=== PATIENT | male | born 1965 | race Caucasian/White ===

== ENCOUNTER → 2016-04-15 | Outpatient (CLI) | payer OTHER ==
[~2016-04-15] VITALS: Ht 175.3 cm; Wt 86.2 kg
[~2016-04-15] MED LIST: CARVEDILOL3.125 MG PO; CLONIDINE HCL0.1 MG PO; CLONIDINE0.1 PO; COREG3.125 MG PO; DOLOPHINE HCL10 MG PO; DOXYCYCLINE 10100 M1 PO; ENDOCET 10-3251 EACH PO; FLUOXETINE HCL40 MG PO; HYDROCODON-ACE1 EAC5 PO; HYDROCODONE-AP1 EACH PO; HYDROXYZINE HCL25 M1 PO; IBUPROFEN 200200 M1 PO; METHADONE HCL 110 M1 PO; MS CONTIN 30 MG30 M1 GT; NAPROSYN500 MG PO; NEURONTIN 300300 M1 PO; NEXIUM40 MG PO; NORCO 10-325 T1 EACH PO; NORTRIPTYLINE H25 M3 PO; NORVASC5 MG PO; OXYCONTIN20 MG PO; PRAVACHOL20 MG PO; PREDNISONE50 MG PO; PROZAC 10 MG CA10 M1 PO; PROZAC 10 MG CA10 MG PO; PROZAC10 MG PO; SUBOXONE 8 MG-1 EAC3 SL; TIZANIDINE HCL 22 MG PO; TIZANIDINE HCL4 MG PO; VALACYCLOVIR1000 MG PO; VIAGRA50 MG; VIAGRA50 MG PO; VICODIN; ZANAFLEX2 M2 PO; ZANAFLEX4 M1 PO; ZANAFLEX4 MG PO
--- NOTE | ~2016-04-15 | HPC ---
[facility] [place] [address] PAIN MANAGEMENT CONSULTATION Name: YAN OAKES Room #: REG RAMSEY Sandi.#: [id number] Admission: 04/15/16 Attend Phys: Francis Marsh MD Discharge: Date of : 61 Report #: [id number] THIS REPORT FOR: //name// CC: JAIRO Marsh DATE OF SERVICE: 04/15/2016 DATE OF REGISTRATION: 04/15/2015 Followup visit for management of high risk medications for chronic back pain post-laminectomy. The patient is in clinic for followup. I saw him 2 months ago. I had been keeping close under the terms of our opioid agreement. We have been tapering his methadone. We are going to taper it further over the course of the next 3 months. Current daily dose of methadone is 40, taken 10 mg q.i.d. Next month we will reduce the dose to 35 mg daily and then 30 a month after that. He is agreeable to this. He has been continuing to see Gema Metcalf, a clinical pain psychologist who is helping with the issues of stress related to ongoing life issues. Still in the custody parekh with his daughter about her child. We discussed it for some time today. His pain intensity is 5/10 today. Lot of that is because his stress seems to be low. Pain is generally worse in his low back radiating into his left buttock and left leg, although he continues to have cervicalgia as well. Pain is exacerbated by prolonged sitting. 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 Medication helps him do so. Denies any significant side effects and is pleased to be coming down on his medication. We spent a lot of time today talking about his tobacco use. He at one time used a of chewing tobacco a day. It is now down to 2-1/2 per week. May be too little too late for his mouth. He has lost many teeth and has significant dental caries and other problems. Recently dealt with an abscess in one of his premolar areas. We discussed the role that poor oral health has and general body inflammation and can certainly worsen generalized aches and pains including his back, neck [facility] [address] [place] [address] PAIN MANAGEMENT CONSULTATION Name: YAN OAKES Room #: REG RAMSEY Junior.#: [id number] Admission: 04/15/16 Attend Phys: Francis Marsh MD Discharge: Date of : 61 Report #: [id number] pain. Just more impetuous for him to completely discontinue his use of oral tobacco. We talked about strategies to do so today. He has followed some of my recommendations regarding nutritional weight loss. At one time, he was up to 230 pounds. He is down to 190. He appears more fit. His color is better. I encouraged him to keep the weight down and watch what he eats. Probably he was having problems gaining weight because his teeth are so poor he cannot chew. On physical exam, he is pleasant today. Less anxious and I had seen him in the past. He is little frustrated about the issue with his granddaughter. His blood pressure is 123/91, heart rate is 93, respirations 12. BMI is 28, moves from sitting to standing position, ambulates without difficulty. Tenderness across his low back is noted. Straight leg raising into the left buttock and down the left leg is present. IMPRESSION: 1. Chronic intractable back pain with radiculopathy status post lumbar laminectomy. 2. Management of high risk medication. 3. History of chronic anxiety and depression. 4. Hypertension. 5. Continued abuse of oral snuff, chewing tobacco. PLAN: 1. I renewed his medications with tapering dose of methadone as described above. He will continue to use hydrocodone 3 times daily for breakthrough pain under terms of our opioid agreement. 2. Follow up with Gema Metcalf. 3. Follow up with dental. Recommendations for oral care. 4. Quit tobacco ! RECOMMENDATIONS: Today, I reviewed important issues related to the use of opioids and other potent, centrally-acting medications for the treatment of pain. Rationale for the use of medication is to reduce pain and improve daily activities and function. These activities, individualized for each patient, include simple activities of daily living, improvement in work capabilities, increased involvement in family and other social activities. Improvement in psychosocial elements of chronic pain were discussed in a broader conversation of wellness that included nonpharmacologic measures to manage pain, suffering and efforts to enhance well being. Remaining as physically active as possible for age and ability plays a tremendous role in the management of chronic pain. This was encouraged. We reviewed potential medication side effects, toxicities and drug interactions, employing strategies to manage problems identified. Pain medications have potential side effects, and patients should exercise caution when operating machinery or driving. We discussed in detail the dramatic [facility] [address] [place] [address] PAIN MANAGEMENT CONSULTATION Name: YAN OAKES Room #: REG RAMSEY Frost#: [id number] Admission: 04/15/16 Attend Phys: Francis Marsh MD Discharge: Date of : 61 Report #: [id number] increase in the Emergency Room visits, hospitalizations and deaths related to misuse and diversion of prescription pain medications in [place]. This opioid crisis in [place] requires both physicians and patients alike to safely use all medications. Safeguarding of medications by keeping them safely locked up or out of reach of others is a critical patient responsibility to ensure that medications are not diverted to others. We discussed the Center for Disease Control (CDC) guidelines for safe use of opioids and the efforts to standardize opioid prescribing to prevent complications. These include guidelines which we strive to meet. They include the standardization of various opioids to morphine milligram equivalents (MME) and also stress the use of the lowest effective dose. Efforts to remain within daily maximum dosing guidelines will also be of focus of treatment. Addiction versus therapeutic use of medication includes routine followup, single prescriber, single pharmacy and the use of random drug screens and other tools to ensure safe prescribing. A signed agreement outlying these issues has been reviewed and remains on the patient chart. Prescriptions were provided today under terms of that agreement, and followup for him is planned in 3 months. Follow up in 3 months. <ELECTRONICALLY SIGNED> By: Francis Marsh MD 05/08/16 1130 [id number] Francis Marsh MD /nt
[2016-04-15 09:52] VITALS: BP 123/91
== END | disposition home or self-care (01) ==
LOC: PAIN 07:09
DX: M54.16 Radiculopathy, lumbar region (principal); G89.29 Other chronic pain; I10 Essential (primary) hypertension; F41.9 Anxiety disorder, unspecified; F32.9 Major depressive disorder, single episode, unspecified; F17.228 Nicotine dependence, chewing tobacco, with other nicotine-induced disorders; Z98.890 Other specified postprocedural states

== ENCOUNTER → 2016-08-05 | Outpatient (CLI) | payer OTHER ==
[~2016-08-05] VITALS: Ht 175.3 cm; Wt 92.1 kg
--- NOTE | ~2016-08-05 | HPC ---
[facility] [address] [place] [address] PAIN MANAGEMENT CONSULTATION Name: YAN OAKES Room #: REG RAMSEY Sandi.#: [id number] Admission: 08/05/16 Attend Phys: Francis Marsh MD Discharge: Date of : 61 Report #: [id number] THIS REPORT FOR: //name// CC: JAIRO Marsh DATE OF SERVICE: 08/05/2016 Followup visit for management of Suboxone for chronic intractable pain and opioid dependence. The patient returns to the pain clinic today in followup. He is doing well on his Suboxone. Actually I would say better than well he is doing superb. He no longer feels be hold into his medication. He does not think about his medication throughout the day. He seems more relaxed. His activities of daily living are more of scheduled. He is having less breakthrough pain throughout the day. He scores his overall pain as a 4/10. He is active with the family. 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 All of them required his assistance. His baby is sitting and taking his father also to appointments. He seems to be handling the stress better. He has had no hospitalizations. He has had no other visits to physicians. He has taken no other opioids since his last visit. Most recent urine drug screen was appropriate. PHYSICAL EXAMINATION: GENERAL: His affect is pleasant, without any signs of anxiety or overmedication. VITAL SIGNS: Blood pressure 144/96, heart rate 73, respirations 16. He is 5 feet 9 inches, BMI is . Mild tenderness across the hips is noted and across the lumbosacral spine. He has some pain between the shoulder blades. IMPRESSION: 1. Chronic intractable pain related to cervicalgia from previous laminectomy and fusion. 2. Low back pain with radiculopathy. 3. Hypertension and tachycardia, improved. 4. Management of high risk medication. Transition to buprenorphine has been excellent. We will continue medication for another 2 months and I have asked him to begin tapering and want him to go to 1-1/2 of his films daily which would be a total of 12 mg. Followup visit is scheduled in 2 months. We will repeat his urine drug screen at that time. By: [id number] Francis Marsh MD /nt
[2016-08-05 13:45] VITALS: BP 144/96
== END | disposition home or self-care (01) ==
LOC: PAIN 07:17
DX: G89.29 Other chronic pain (principal); M54.5 Low back pain; M54.10 Radiculopathy, site unspecified; I10 Essential (primary) hypertension; R00.0 Tachycardia, unspecified

== ENCOUNTER → 2016-10-07 | Outpatient (CLI) | payer OTHER ==
[~2016-10-07] VITALS: Ht 175.3 cm; Wt 92.5 kg
[2016-10-07 08:08] VITALS: BP 143/102
== END | disposition home or self-care (01) ==
LOC: PAIN 06:17
DX: G89.29 Other chronic pain (principal); M54.2 Cervicalgia; M54.10 Radiculopathy, site unspecified; I10 Essential (primary) hypertension; F11.20 Opioid dependence, uncomplicated

== ENCOUNTER → 2017-01-06 | Outpatient (CLI) | payer OTHER ==
[~2017-01-06] VITALS: Ht 175.3 cm; Wt 93.0 kg
--- NOTE | ~2017-01-06 | HPC ---
[facility] [address] [address] PAIN MANAGEMENT CONSULTATION Name: YAN OAKES Room #: REG RAMSEY Margot#: [id number] Admission: 01/06/17 Attend Phys: Francis Marsh MD Discharge: Date of : 61 Report #: [id number] THIS REPORT FOR: //name// CC: JAIRO JAUREGUI DO Francis Marsh DATE OF SERVICE: 01/06/2017 Followup visit for management of Suboxone for addiction. The patient is here today in the pain clinic for renewal of his Suboxone medication. He is doing quite well. I treated him for years for chronic pain. His use of medication was concerning and after some serious heart to heart discussion, he has agreed that he was probably taking it as an addict, not so much as a pain patient. He does have chronic pain there is no question, but he had lost control of his medication. When we started him on Suboxone things stabilized. He has done very well on the medication taking it on schedule. He is grateful to be off of his other opioids, which included methadone and hydrocodone. He scores his daily pain as 4/10. Pain is mostly between his shoulder blades, scapula and he also has lumbar pain as well as left hip pain. It is exacerbated by sitting and overactivity. In addition to medication, he has been doing exercises, stretching, relaxes in his recliner. He gets a lot of exercise because he babysits his granddaughter for 8 hours a day on a regular basis. He tells me ____ dante in his voice and is grateful for the ability to do so. 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 This seems to be going reasonably well. 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 PHYSICAL EXAMINATION: Blood pressure is 129/92, heart rate 80, respirations 18. BMI is 30. He shows no signs of anxiety or depression. He is clearly much better on Suboxone. He has some pain in his back and localized tenderness at the cervicothoracic junction. He has pain across his low back and straight leg raising reproduces pain into the left hip. IMPRESSION: 1. Chronic intractable pain with multiple pain generators. 2. History of addiction to opioids, now being treated with Suboxone 10/27 b.i.d. He has now been on for roughly 9 months. It has gone well. Buccal screening was performed at previous visit, which was appropriate for all medications with no additional opioids. PLAN: Followup visit is planned in [address] [address] PAIN MANAGEMENT CONSULTATION Name: YAN OAKES Room #: REG RAMSEY Frost#: [id number] Admission: 01/06/17 Attend Phys: Francis Marsh MD Discharge: Date of : 61 Report #: [id number] Time spent with patient is roughly 30 minutes. By: [id number] Francis Marsh MD /nt
[2017-01-06 10:01] VITALS: BP 129/92
== END | disposition home or self-care (01) ==
LOC: PAIN 06:55
DX: Z76.0 Encounter for issue of repeat prescription (principal); G89.29 Other chronic pain; M54.5 Low back pain; Z79.891 Long term (current) use of opiate analgesic; Z88.6 Allergy status to analgesic agent; Z79.899 Other long term (current) drug therapy

== ENCOUNTER → 2017-04-01 | Outpatient (CLI) | payer OTHER ==
[~2017-04-01] VITALS: Ht 175.3 cm; Wt 99.0 kg
[~2017-04-01] MED LIST changes: +BUPRENORPHIN-N1 EACH PO; +ZANAFLEX2 MG PO
--- NOTE | ~2017-04-01 | HPC ---
[facility] [address] [place] [address] PAIN MANAGEMENT CONSULTATION Name: YAN OAEKS Room #: REG RAMSEY Margot#: [id number] Admission: 04/01/17 Attend Phys: David Tracy DO Discharge: Date of : 61 Report #: [id number] THIS REPORT FOR: //name// CC: JAIRO Tracy This is a pleasant 51-year-old gentleman long treated by Dr. Francis Marsh for axial back pain requiring high risk complex medication management. He has been stable on Suboxone 8/2 b.i.d. for several years. His last buccal drug swab on 10/07/2016 was positive for prescribed medication. He returns to the pain clinic today noting medications are generally providing sufficient analgesia to participate in activities of daily living. He rates his pain 3 on a VAS. Primarily his shoulder blades and upper back. Pain is exacerbated with activity and weather changes. He does take ibuprofen about 600 mg a day for prostaglandin mediated pain. He has had a prior cervical fusion. He has had a history of lumbar compression fractures in the distant past. PHYSICAL EXAMINATION: Shows 51-year-old gentleman, moderately obese, BMI is 32.2 kilograms per meter squared. Vital signs stable with modest diastolic hypertension (blood pressure 125/92). Rises from chair using arm rest. Has some diffuse tenderness in the mid thoracic paravertebral muscles. No discrete trigger points are noted. Range of motion is limited to flexion, rotation and sidebending. Gait is tandem. Lower extremity strength is preserved. We reviewed the fact that opiate medications are being used to provide analgesia adequate to support activities of daily living, not attempting to achieve a specific pain score on the 0-10 Visual Analog Scale. The current opiate medications are providing sufficient analgesia to allow the patient to participate in activities of daily living. The patient is not exhibiting any aberrant behavior suggestive of drug diversion. The patient is not having any adverse reactions to medications. The patient is not suffering from daytime somnolence or mental acuity changes. The patient is managing opiate-induced constipation with appropriate kbnj-isd-rjvgckr agents and dietary considerations. The patient was counseled on concern for caution with operating a motor vehicle while using opiate medications. A physical exam was performed and the patient's functional status was evaluated. All patients with back pain were advised against the bed rest greater than 4 days and were advised to return to normal activities. Pain score assessment was noted and the treatment plan was reviewed with the patient. All current medications, both prescribed and OTC were reviewed and reconciled on the electronic medical record. Tobacco screening was accomplished and smoking cessation was advised when indicated. BMI was noted and diet/exercise modification was recommended for all patients following outside normal parameters. I reviewed with the patient today their responsibilities to safeguard prescription medications, reviewed their responsibility to utilize medications only as prescribed by the physician. They are to seek and receive pain [address] [address] PAIN MANAGEMENT CONSULTATION Name: YAN OAKES Room #: REG [facility] Sandi.#: [id number] Admission: 04/01/17 Attend Phys: David Tracy DO Discharge: Date of : 61 Report #: [id number] medications only from 1 physician group ([facility]). They are to use 1 pharmacy and keep the clinic informed if they change pharmacies. Their responsibilities include making followup visits in a timely fashion and to avoid abrupt discontinuation of medication usage. Their responsibilities further include bringing their medications (bottles from the pharmacy with residual pills) to the visit for possible confirmation of pill counts and the patient understands it is their responsibility to submit to random drug screens to ensure both that the medications prescribed are present, and that no other controlled substances are present. All prescriptions provided today were generated electronically. ASSESSMENT: Symptomatic lumbar radiculopathy, axial back pain, component of thoracolumbar scoliosis, history of vertebral compression fracture, status post anterior cervical disk fusion requiring high risk complex medication management. RECOMMENDATION: Continue Suboxone /2 b.i.d. I have taken the liberty of writing for 60 film strips or tablets, whatever is covered by insurance, two refills. Follow up with Dr. Francis Marsh. <ELECTRONICALLY SIGNED> By: David Tracy DO 04/04/17 0731 [id number] David Tracy DO /nt
[2017-04-01 13:22] VITALS: BP 125/92
== END ==
LOC: PAIN 06:50
DX: M54.16 Radiculopathy, lumbar region (principal); M54.9 Dorsalgia, unspecified; M41.85 Other forms of scoliosis, thoracolumbar region; Z79.899 Other long term (current) drug therapy; Z87.81 Personal history of (healed) traumatic fracture; Z98.890 Other specified postprocedural states

== ENCOUNTER → 2017-06-20 | Outpatient (CLI) | payer OTHER ==
[~2017-06-20] VITALS: Ht 175.3 cm; Wt 104.9 kg
--- NOTE | ~2017-06-20 | HPC ---
[facility] [address] [address] PAIN MANAGEMENT CONSULTATION Name: YAN OAKES Room #: REG RAMSEY Margot#: [id number] Admission: 06/20/17 Attend Phys: Francis Marsh MD Discharge: Date of : 61 Report #: [id number] THIS REPORT FOR: //name// CC: JAIRO Marsh DATE OF SERVICE: 06/20/2017 DATE OF REGISTRATION: 06/20/2017 Followup visit for management of Suboxone for chronic pain and history of opioid use disorder. The patient returns to pain clinic today for renewal of his Suboxone. I have been providing this for him under terms of an agreement. He was previously on high dose opioids and has done well, going off of them. His current daily dose is Suboxone 8/2 twice a day. He has used films in the past . I have asked him to ask his pharmacist if he can receive one or the other at a lower cost to him and then he should evaluate them for efficacy. He remains active babysitting his granddaughter. He is also the primary caregiver for his father. 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 His greatest work effort seems, however, to be in the treatment of family members. Father and daughter are both living with him. He has ongoing pain that has been manageable without the use of narcotics beyond the buprenorphine and his Suboxone. MEDICATIONS: Reviewed and reconciled. PHYSICAL EXAMINATION: He is pleasant, alert and oriented, shows no signs of anxiety, depression or overmedication. He has gained some weight. His BMI is 34.1. He has pain in his neck with flexion, extension, krbc-gn-mhuk rotation. Tenderness in the suprascapular region is noted. He has tenderness also in the occiput. He has some pain across his low back pain, pain radiating into his left hip with straight leg raising. He walks with an antalgic gait. Pain score is 4/10. IMPRESSION: 1. Chronic intractable pain primarily cervicalgia and low back pain with radiculopathy. 2. History of opioid use disorder and addiction. He has now been on Suboxone for over a year and doing well. Highly functioning and has had no side effects whatsoever from his medication that we can tell. [address] [address] PAIN MANAGEMENT CONSULTATION Name: YAN OAKES Room #: REG [facility] Sandi.#: [id number] Admission: 06/20/17 Attend Phys: Francis Marsh MD Discharge: Date of : 61 Report #: [id number] PLAN: Medications renewed. I have given him a muscle relaxant, tizanidine to take at bedtime after a long day of lifting and caring. <ELECTRONICALLY SIGNED> By: Francis Marsh MD 07/04/17 1408 1456 1548 Francis Marsh MD /gagandeep
[2017-06-20 10:30] VITALS: BP 156/97
== END ==
LOC: PAIN 07:08
DX: G89.29 Other chronic pain (principal); M54.2 Cervicalgia; M54.16 Radiculopathy, lumbar region; F11.90 Opioid use, unspecified, uncomplicated

== ENCOUNTER → 2017-09-19 | Outpatient (CLI) | payer OTHER ==
[~2017-09-19] VITALS: Ht 175.3 cm; Wt 106.1 kg
--- NOTE | ~2017-09-19 | HPC ---
[facility] [address] [address] PAIN MANAGEMENT CONSULTATION Name: YAN OAKES Room #: REG RAMSEY Margot#: [id number] Admission: 09/19/17 Attend Phys: Francis Masrh MD Discharge: Date of : 61 Report #: [id number] THIS REPORT FOR: //name// CC: JAIRO JAUREGUI Physician staff Francis Marsh DATE OF SERVICE: 09/19/2017 DATE OF REGISTRATION: 09/19/2017 Followup visit for chronic intractable pain and management of Suboxone for history of opioid use disorder. This is a 3-month followup visit for the patient. He is doing well at Suboxone 8/2 b.i.d. He is no longer craving nor overtaking medication and has been very scheduled on his use of Suboxone. His family remains the most important to him. While his granddaughter is growing and becoming more independent and self-reliant, his father is continuing to decline and he provides a lot of support to both. 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 He is trying to continue to work as well at his primary income job. There were no new changes in his health history since his last visit. CURRENT MEDICAL CONDITIONS LISTED: Include a history of diskectomy and fusion at C4-C5 with removal of rib fusion plate at C5-C6. He has a history of gastroesophageal reflux disease, hypertension, anxiety, Euceda's palsy. PHYSICAL EXAMINATION: GENERAL: His affect is pleasant. VITAL SIGNS: He has gained a bit of weight. His BMI is now 34.5. His blood pressure 120/83, heart rate 86, respirations 16. HEENT: Pupils are equal, round, reactive to light. EOMs are intact. Mucous membranes are moist. MUSCULOSKELETAL: His neck range of motion is reduced in flexion, extension, rotation with localized tenderness in the mid scapular region. IMPRESSION: 1. Chronic intractable pain related to neck surgery with anterior fusion plate persistent cervicalgia and upper back pain. 2. History of opioid use disorder and addiction now on Suboxone. He has been doing well. Continues to take his medication on schedule without side effects. RECOMMENDATION: We have talked about beginning a small taper. He is currently on 60 mg a day buprenorphine. At subsequent visits, I may reduce his daily dose [facility] [address] [place] [address] PAIN MANAGEMENT CONSULTATION Name: YAN OAKES Room #: REG [facility].#: [id number] Admission: 09/19/17 Attend Phys: Francis Marsh MD Discharge: Date of : 61 Report #: [id number] to 12. Followup visit is scheduled in 3 months. Dated prescriptions provided along with this month. By: [id number] Francis Marsh MD /nt
[2017-09-19 14:17] VITALS: BP 120/83
== END ==
LOC: PAIN 06:46
DX: G89.4 Chronic pain syndrome (principal); F11.20 Opioid dependence, uncomplicated

== ENCOUNTER → 2017-12-20 | Outpatient (CLI) | payer OTHER ==
[~2017-12-20] VITALS: Ht 175.3 cm; Wt 103.6 kg
--- NOTE | ~2017-12-20 | HPC ---
[facility] [address] [address] [place] [address] PAIN MANAGEMENT CONSULTATION Name: YAN OAKES Room #: REG RAMSEY M.R.#: [id number] Admission: 12/20/17 Attend Phys: Jairo Tracy DO Discharge: Date of : 61 Report #: [id number] THIS REPORT FOR: //name// CC: JAIRO Snowden DO Physician staff Francis Marsh MD DATE OF SERVICE: 12/20/2017 CHIEF COMPLAINT: Chronic intractable pain. HISTORY OF PRESENT ILLNESS: As you know, the patient is a 52-year-old male who has returned today in followup visit with chronic low back pain, bilateral shoulder pain. He indicates pain is chronic in nature. The pain is described as pressure, aching and stabbing. He places his current pain score at 5/10, exacerbated with sitting and over activity; improves with medications, stretching on recliner. The patient apparently ran out of his Suboxone on Tuesday of last week and has begun to experience some abdominal discomfort. He is not describing any anxiety or diaphoresis. He returns requesting refill on medications. He typically follows with Dr. Francis Marsh but due to running out of his medications, he was placed on the schedule for 1 month prescription. ALLERGIES: No known drug allergies. CURRENT MEDICATIONS: Suboxone 8/2 mg twice a day, tizanidine 2 mg twice a day, fluoxetine 40 mg per day, carvedilol 3.125 mg twice a day, clonidine 0.1 mg twice a day, amlodipine 5 mg once a day, omeprazole 40 mg once a day, pravastatin 20 mg once a day. SOCIAL HISTORY: The patient denies tobacco, alcohol, IV or illicit drug use. He is unaccompanied at today's visit. IMAGING: There is no new imaging available. PHYSICAL EXAMINATION: VITAL SIGNS: Blood pressure 133/99, pulse 106, respiratory rate 18 and unlabored. The patient is 100% on room air. Height 5 feet 9 inches tall, weight 228 pounds, BMI calculated 33.7. GENERAL: Well-developed, well-nourished, well-hydrated, exogenously obese 52-year-old male, appearing his stated age, placing current pain score at 5/10. HEENT: Normocephalic, atraumatic. Pupils are equal, round, reactive to light. Extraocular muscles are intact. Speech is fluent. EXTREMITIES: Show no clubbing, no cyanosis, no edema. MUSCULOSKELETAL: Cervical provocation testing is met with mild reduction in [facility] [address] [place] [address] PAIN MANAGEMENT CONSULTATION Name: YAN OAKES Room #: REG [facility]#: [id number] Admission: 12/20/17 Attend Phys: Jairo Tracy DO Discharge: Date of : 61 Report #: [id number] flexion, extension and rotation. There is some tenderness to palpation. No spinous process tenderness. There are myofascial symptoms noted in the upper back with palpation over the paraspinal musculature. No spinous process tenderness. ASSESSMENT: 1. Chronic neck pain, status post fusion. 2. Myofascial pain. 3. Opioid disuse disorder. 4. Complex opioid management. 5. Chronic intractable pain. PLAN: 1. The patient has returned today in followup visit where we have spent time with the patient discussing his use of opioid medications. He is utilizing Suboxone 8 mg dose twice a day, this converts per the recent CDC's guidelines to 160 morphine equivalents a day, well over the CDC's recommended 90 morphine equivalents a day. I presented to the patient the conversion factors in written form so the patient could follow along with our discussion. We discussed the fact that we monitor our patients closely with opioid medications. The fact that he is over the 90 morphine equivalents indicates that he would need to be seen on a monthly basis to receive medication with the plan to wean to 90 morphine equivalents in a timely fashion. The patient and I discussed the fact that buprenorphine is an opioid like medication that works very similar to opioids with a reduction in the u2 receptor activity and thus a safer medication than straight opioid medication as it does not have the respiratory depression, GI issues and euphoric effects noted with other opioid medications. Despite this, the patient is noted to be at 160 morphine equivalents a day given the conversion factor from the CDC of 1 mg buprenorphine equaling 10 mg of morphine equivalents. We discussed this with the patient today and I have made the patient prefer a followup visit in a timely manner to discuss this further with his prescribing physician, Dr. Marsh. 2. The patient was provided prescription of Suboxone 8 mg/2 mg dose 1 film twice a day, equaling 160 morphine equivalents a day. The patient was advised if he wishes to reduce the therapy, he can reduce by half a film twice a day, which would put him at exactly 90 morphine equivalents a day, more in compliance with the CDCs recommended guidelines. If the patient is unable to do so, he can discuss with Dr. Marsh at next visit a slow reduction of therapy to comply with CDC's recommendations. The patient was given a prescription of Suboxone #60 films, no refills. 3. The patient was provided refill prescription of tizanidine with no refills. The patient was advised to take this medication only when his symptoms are related to muscle spasming. I did caution the patient about side effects of this medication including somnolence, decreased mental acuity, disorientation, confusion, mental slowing. He is to watch for any side effects with its use. He is not to drive or operate heavy equipment while on this medication. [facility] [address] [place] [address] PAIN MANAGEMENT CONSULTATION Name: YAN OAKES Room #: REG [facility]..#: [id number] Admission: 12/20/17 Attend Phys: Jairo Tracy DO Discharge: Date of : 61 Report #: [id number] 4. The patient will return to see Dr. Marsh for further adjustments in the Suboxone therapy to address the CDC's recommended guidelines for opioid use in chronic pain patients. <ELECTRONICALLY SIGNED> By: Jairo rTacy DO 12/27/17 1256 0900 1137 Jairo Tracy DO /nt
[2017-12-20 08:24] VITALS: BP 133/99
== END ==
LOC: PAIN 06:31
DX: M54.2 Cervicalgia (principal); G89.4 Chronic pain syndrome; M79.1 Myalgia; F11.20 Opioid dependence, uncomplicated; Z79.899 Other long term (current) drug therapy

== ENCOUNTER → 2018-01-12 | Outpatient (CLI) | payer OTHER ==
[~2018-01-12] VITALS: Ht 175.3 cm; Wt 105.6 kg
--- NOTE | ~2018-01-12 | HPC ---
[facility] [address] [place] [address] PAIN MANAGEMENT CONSULTATION Name: MICHELET OAKES Room #: REG RAMSEY Sandi.#: [id number] Admission: 01/12/18 Attend Phys: Francis Marsh MD Discharge: Date of : 61 Report #: [id number] THIS REPORT FOR: //name// CC: JAIRO SNOWDEN Physician staff Francis Marsh DATE OF SERVICE: 01/12/2018 Followup visit for chronic pain, status post anterior cervical diskectomy and fusion, removal of plate, chronic low back pain with radiculopathy status post lumbar fracture and management of Suboxone for opioid use disorder. The patient returns to pain clinic today in followup for his medication. I provide him Suboxone under terms of written agreement. I managed his pain for a number of years with methadone and oxycodone until ultimately he felt that he was craving medication and using it above and beyond his pain needs. He has responded beautifully to transition to Suboxone and has now been on it for over a year. He is stable on the current dose of 8/2 taken b.i.d. This helps control his pain and he does not have the ups and downs that he had while he was on methadone and oxycodone. He stated today that everyone who was on opioids would likely like to be off of them. We had a lengthy discussion today about the opioid crisis and important aspects including dosing and morphine milligram equivalents. 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 He has a fair amount of stress, helping care for his father and also for his 2-year-old granddaughter. 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 He has some anxiety disorder and a history of depression. I think he is doing better as far as managing the social and psychological aspects of his life over the course of the last few visits. He seems mildly depressed, however, in the office today. He drinks alcohol only occasionally during a chess game or other event. He does not use it regularly or excessively. He does not smoke, but uses smokeless chewing tobacco Skoal and is down to about 1 can every 3-4 days. I have encouraged him to go off. All medications have been reconciled from the electronic medical record. The only medication I provide for him is Suboxone, the additional medication is provided by Dr. Snowden. PHYSICAL EXAMINATION: GENERAL: His affect is pleasant, but mildly depressed. Thought process is clear, shows no signs of overmedication. VITAL SIGNS: His blood pressure is 135/84. Heart rate is 88. SPINE: He has some limited range of motion of the cervical spine and tenderness [address] [address] PAIN MANAGEMENT CONSULTATION Name: MICHELET OAKES Room #: REG [facility] Jean MarieEdu#: [id number] Admission: 01/12/18 Attend Phys: Francis Marsh MD Discharge: Date of : 61 Report #: [id number] along the scarring. HAND: He has good strength in his hands today and sensation is intact. IMPRESSION: 1. Chronic intractable pain related to multiple spinal surgeries, cervical fusions and disk degeneration. He also has lumbar issues as well. 2. Management of pain and opioids with Suboxone. 3. Hypertension. 4. Anxiety/depression, stable. Medications were provided for him for 3 months per terms of our written agreement. Plan to see him back in the clinic at that time. He reports that his Suboxone is expensive. $240 a month is a high escobar to pay. I have told him that my hope is that with the 6.6 billion dollars just approved by Congress to help with the opioid crisis, conscientious patients such as [place] will be able to receive their Suboxone at little to no cost. We will follow closely. <ELECTRONICALLY SIGNED> By: Francis Marsh MD 01/13/18 1312 0929 [id number] Francis Marsh MD /nt
[2018-01-12 08:43] VITALS: BP 127/92
== END ==
LOC: PAIN 06:59
DX: M51.16 Intervertebral disc disorders with radiculopathy, lumbar region (principal); I10 Essential (primary) hypertension; F32.9 Major depressive disorder, single episode, unspecified; F41.9 Anxiety disorder, unspecified; Z79.891 Long term (current) use of opiate analgesic; Z79.899 Other long term (current) drug therapy

== ENCOUNTER → 2018-04-12 | Outpatient (CLI) | payer OTHER ==
[~2018-04-12] VITALS: Ht 175.3 cm; Wt 110.3 kg
[2018-04-12 09:27] VITALS: BP 139/96
--- NOTE | 2018-04-12 09:36 | NUR ---
Pain Clinic Assessment: 1. History of Osteoarthritis: Not Applicable History of Rheumatoid Arthritis: Not Applicable 2. Height: 5 ft. 9 in. 175.3 cm. Weight: 243.2 lb. oz. 110.315 kg. Patient's BMI: 35.9 3. Vital Signs: BP: 139/96 Pulse: 94 Resp: 16 Temp: 02 Sat: 96 ECG Mon: 4. Pain Intensity: 4 5. Fall Risk: Dizziness: N Needs help standing or walking: N Fallen in the last 3 months: N Fall risk comments: 6. Patient on Blood Thinner: None 7. History of Hypertension: Y 8. Opioid Therapy greater than 6 weeks: Y Opiate Contract Signed: 11/10/15 9. Risk Assessment Tool Provided: 0 10. Functional Assessment Tool: 11. Recreational Drug Use: Never Drug Type: Tobacco Use: Never Smoker Tobacco Type: Amount or Packs/day: How Many Years: Alcohol Use: Yes Frequency: Quant:
--- NOTE | 2018-04-13 08:10 | HPC ---
[facility] [address] [address] PAIN MANAGEMENT CONSULTATION Name: YAN OAKES Room #: REG RAMSEY Margot#: [id number] Admission: 04/12/18 Attend Phys: Vicki Guerrero Discharge: Date of : 61 Report #: [id number] THIS REPORT FOR: //name// CC: Vicki GILL [facility] Physician staff DATE OF SERVICE: 04/12/2018 CHIEF COMPLAINT: Chronic intractable pain. HISTORY OF PRESENT ILLNESS: As you know, this is a 52-year-old male who returns today in a followup visit for his chronic low back pain, bilateral shoulder pain, pain between his shoulder blades. He tells me that his pain is chronic. He describes his pain today as a 4/10, mostly pressure, aching and stabbing, worse with sitting too long or overactivity. Tells me his medication is very helpful in controlling his pain. He has been on Suboxone for almost 2 years and tells me that he is so much better than he used to be. He denies any constipation. He tells me though that his lower back has started to hurt more especially after standing for more than 15-20 minutes, thinking he may need an MRI soon and to see Dr. Joyce, that he is not quite to that point yet. He is just here for a medication refill today. ALLERGIES: MORPHINE. CURRENT LIST OF MEDICATIONS: Suboxone 8/2 twice a day, tizanidine 2 mg as needed, Prozac 40 mg daily, carvedilol 3.125 twice a day, clonidine 0.1 twice a day, amlodipine 5 mg daily, Nexium 40 mg daily and pravastatin 20 mg daily. PQRS: 1. He does have some osteoarthritis in his lower back, denies rheumatoid arthritis. 2. Height is 5 feet 9 inches, weight is 243, BMI is 35.9. 3. Vital signs: Blood pressure 139/96, pulse is 94, respirations 16, oxygen sat is 96. Pain score is 4/10. 4. Denies dizziness. Does not need help walking or standing. Has not fallen in the last 3 months. 5. The patient is not on any blood thinners, does take antihypertensive medicines. 6. Opioid therapy is greater than 6 weeks, therefore an opioid signed contract is on the chart. 7. His risk assessment tool is low. His functional assessment is 44/70. 8. Recreational drug use, he denies. He is not a smoker and occasionally drinks alcohol. We did check the prescription monitoring system, filling appropriately from one pharmacy and one doctor. He is on time for his medications and tells me he safeguards his medications. [address] [address] PAIN MANAGEMENT CONSULTATION Name: YAN OAKES Room #: REG RAMSEY Frost#: [id number] Admission: 04/12/18 Attend Phys: Vicki Guerrero Discharge: Date of : 61 Report #: [id number] PHYSICAL EXAMINATION: GENERAL: This is a well-developed, well-nourished, well-hydrated, exogenously obese 52-year-old male who appears his stated age, placing his current pain score as 5/10. HEENT: Normocephalic, atraumatic. Pupils are equal, round and reactive to light. Extraocular eye muscles are intact. Speech is fluent. EXTREMITIES: No clubbing, no cyanosis, no edema. MUSCULOSKELETAL: Complains of some neck pain with flexion and extension. On rotation has some tenderness present. Also complains of soreness between his shoulder blades. There are some myofascial symptoms in his lower back. He does complain of increasing pain in his lower back. Muscle strength is judged to be 5/5 in his lower extremities. ASSESSMENT: 1. Chronic neck pain, status post fusion. 2. Myofascial pain. 3. Opioid disuse disorder. 4. Complex opioid management. 5. Chronic intractable pain. We reviewed the fact that opiate medications are being used to provide analgesia adequate to support activities of daily living, not attempting to achieve a specific pain score on the 0-10 Visual Analog Scale. The current opiate medications are providing sufficient analgesia to allow the patient to participate in activities of daily living. The patient is not exhibiting any aberrant behavior suggestive of drug diversion. The patient is not having any adverse reactions to medications. The patient is not suffering from daytime somnolence or mental acuity changes. The patient is managing opiate-induced constipation with appropriate [id number] agents and dietary considerations. The patient was counseled on concern for caution with operating a motor vehicle while using opiate medications. A physical exam was performed and the patient's functional status was evaluated. All patients with back pain were advised against the bed rest greater than 4 days and were advised to return to normal activities. Pain score assessment was noted and the treatment plan was reviewed with the patient. All current medications, both prescribed and OTC were reviewed and reconciled on the electronic medical record. Tobacco screening was accomplished and smoking cessation was advised when indicated. BMI was noted and diet/exercise modification was recommended for all patients following outside normal parameters. I reviewed with the patient today their responsibilities to safeguard prescription medications, reviewed their responsibility to utilize medications only as prescribed by the physician. They are to seek and receive pain [address] [address] PAIN MANAGEMENT CONSULTATION Name: YAN OAKES Room #: REG [facility].#: [id number] Admission: 04/12/18 Attend Phys: Vicki Guerrero Discharge: Date of : 61 Report #: [id number] medications only from 1 physician group ( [facility]). They are to use 1 pharmacy and keep the clinic informed if they change pharmacies. Their responsibilities include making followup visits in a timely fashion and to avoid abrupt discontinuation of medication usage. Their responsibilities further include bringing their medications (bottles from the pharmacy with residual pills) to the visit for possible confirmation of pill counts and the patient understands it is their responsibility to submit to random drug screens to ensure both that the medications prescribed are present, and that no other controlled substances are present. All prescriptions provided today were generated electronically. PLAN: 1. The patient returns today. We discussed treatment options. He has been stable on his current dose of Suboxone. We will refill that, 10/27 twice a day, #60 with 2 additional refills today. 2. The patient tells me he has been having increased discomfort in his lower back. He thinks it may be about time to see Dr. Joyce and have another MRI or myelogram. The patient will decide at that point that he feels that his pain has increased enough to warrant those appointments. 3. The patient will be seen in 3 month time. The patient is seen in collaboration today with Dr. Francis Marsh. <ELECTRONICALLY SIGNED> By: Vicki Guerrero 04/13/18 0810 1026 1044 Vicki guzmán
== END ==
LOC: PAIN 07:12
DX: M54.2 Cervicalgia (principal); G89.4 Chronic pain syndrome; R51 Headache; F11.10 Opioid abuse, uncomplicated

== ENCOUNTER → 2018-07-04 | Outpatient (CLI) | payer OTHER ==
[~2018-07-04] VITALS: Ht 175.3 cm; Wt 113.7 kg
[2018-07-04 10:55] VITALS: BP 138/94
--- NOTE | 2018-07-04 11:08 | NUR ---
Pain Clinic Assessment: 1. History of Osteoarthritis: Not Applicable History of Rheumatoid Arthritis: Not Applicable 2. Height: 5 ft. 9 in. 175.3 cm. Weight: 250.6 lb. oz. 113.672 kg. Patient's BMI: 37.0 3. Vital Signs: BP: 138/94 Pulse: 104 Resp: 14 Temp: 02 Sat: 98 ECG Mon: 4. Pain Intensity: 5 5. Fall Risk: Dizziness: N Needs help standing or walking: N Fallen in the last 3 months: N Fall risk comments: 6. Patient on Blood Thinner: None 7. History of Hypertension: Y 8. Opioid Therapy greater than 6 weeks: Y Opiate Contract Signed: 11/10/15 9. Risk Assessment Tool Provided: 0 10. Functional Assessment Tool: 11. Recreational Drug Use: Never Drug Type: Tobacco Use: Never Smoker Tobacco Type: Amount or Packs/day: How Many Years: Alcohol Use: Yes Frequency: Quant:
--- NOTE | 2018-07-05 08:01 | HPC ---
[facility] [address] [place] [address] PAIN MANAGEMENT CONSULTATION Name: YAN OAKES Room #: REG RAMSEY Frost#: [id number] Admission: 07/04/18 ������������������ Attend Phys: Vicki Guerrero Discharge: ������������������ Date of : 61 Report #: [id number] THIS REPORT FOR: //name// CC: Vicki GILL [facility] Physician staff DATE OF SERVICE: 07/04/2018 CHIEF COMPLAINT: Chronic intractable pain. HISTORY OF PRESENT ILLNESS: This is a 52-year-old gentleman who returns to the pain clinic today for his chronic low back pain, bilateral shoulder pain and today he is complaining of a new pain that is radiating in his neck up around his ear down into his jaw radiating to the top of his head through his occipital area. He said it is a burning, pins and needle pressure, sometimes lasting a few minutes and sometimes lasting a few seconds. It does come and go with this stabbing and pins and needles feeling. He tells me it is worse when he turns his head. He also has some pain between his shoulder blades. He does not have any pain that radiates down into his left arm today. The patient does have a history of cervical fusions. Today, he rates his pain score at 5/10. He tells me it is worse when he is active, taking care of his grandchildren. His medications are helpful. He tells me he has not been exercising very much over the winter. He has gained about 50 pounds per his report. He also has flu-like symptoms today for upper respiratory infection. He would like a refill of his Suboxone today. ALLERGIES: MORPHINE. CURRENT LIST OF MEDICATIONS: Suboxone /, tizanidine 2 mg 1-2 tablets as needed for spasms, fluoxetine 40 mg daily, carvedilol 3.125 twice a day, clonidine 0.1 mg b.i.d., Norvasc 5 mg daily, Nexium 40 mg daily, Pravachol 20 mg daily. PQRS: 1. He does have arthritic changes in his lower back. He denies any rheumatoid arthritis. 2. Height is 5 feet 9 inches, weight is 250, BMI is 37. This is increased from 243 in his last visit in March. 3. Vital signs, 138/94, pulse is 104, respirations 14, oxygen sat is 98. 4. Pain score 5/10. 5. Fall risk. Denies dizziness. Does not need help walking or standing. Has not fallen in the last 3 months. 6. The patient is not on any blood thinners. He does take medicine for hypertension. 7. Opioid therapy is greater than 6 weeks. Therefore, an opioid signed [address] [address] PAIN MANAGEMENT CONSULTATION Name: YAN OAKES Room #: REG RAMSEY Frost#: [id number] Admission: 07/04/18 ������������������ Attend Phys: Vicki JANESSA Guerrero Discharge: ������������������ Date of : 61 Report #: [id number] contract is on the chart. His risk assessment is 0. His functional assessment is 44/70. 8. Recreational drug use. He denies. He is not a smoker and does drink some alcohol. We did check the prescription monitoring system. The patient is filling appropriately medications from our providers and there is a recent drug screen on the chart in the past year, but we will repeat that at the next visit then it will be a year old. PHYSICAL EXAMINATION: GENERAL: This is a well-developed, well-nourished, well-hydrated, exogenous, obese 52-year-old gentleman who appears his stated age. Placing his pain score today at 5/10. HEENT: Normocephalic, atraumatic. Pupils equal, round and reactive to light. Extraocular eye muscles are intact. Speech is fluent. NECK: Does complain of some burning, pins and needles feeling on the right side of his neck with no radiation down his arm. He has limitation in his lateral tilt. Range of motion affecting C2-C3 distribution. He has a fusion at C4-C5. The patient is able to do flexion, extension with limited difficulty, but does cause some slight tenderness in his posterior neck. MUSCULOSKELETAL: Complains of some neck pain again today on lateral tilt, soreness between his shoulder blades. The patient also complains of increasing lower back pain. Muscle strength judged to be 5/5 in the lower extremities as well in his upper extremities. Did check his reflexes and they were normal. ASSESSMENT: 1. Chronic neck pain, status post fusion. 2. Myofascial pain. 3. Opioid disuse disorder. 4. Complex opioid management. 5. Chronic intractable pain. We reviewed the fact that opiate medications are being used to provide analgesia adequate to support activities of daily living, not attempting to achieve a specific pain score on the 0-10 Visual Analog Scale. The current opiate medications are providing sufficient analgesia to allow the patient to participate in activities of daily living. The patient is not exhibiting any aberrant behavior suggestive of drug diversion. The patient is not having any adverse reactions to medications. The patient is not suffering from daytime somnolence or mental acuity changes. The patient is managing opiate-induced constipation with appropriate [id number] agents and dietary considerations. The patient was counseled on concern for caution with operating a motor vehicle while using opiate medications. A physical exam was performed and the patient's functional status was evaluated. All patients with back pain were advised against the bed rest greater than 4 days and were advised to return to normal activities. Pain score assessment was [facility] [address] [place] [address] PAIN MANAGEMENT CONSULTATION Name: YAN OAKES Room #: REG [facility]..#: [id number] Admission: 07/04/18 ������������������ Attend Phys: Vicki Guerrero Discharge: ������������������ Date of : 61 Report #: [id number] noted and the treatment plan was reviewed with the patient. All current medications, both prescribed and OTC were reviewed and reconciled on the electronic medical record. Tobacco screening was accomplished and smoking cessation was advised when indicated. BMI was noted and diet/exercise modification was recommended for all patients following outside normal parameters. I reviewed with the patient today their responsibilities to safeguard prescription medications, reviewed their responsibility to utilize medications only as prescribed by the physician. They are to seek and receive pain medications only from 1 physician group ( [facility]). They are to use 1 pharmacy and keep the clinic informed if they change pharmacies. Their responsibilities include making followup visits in a timely fashion and to avoid abrupt discontinuation of medication usage. Their responsibilities further include bringing their medications (bottles from the pharmacy with residual pills) to the visit for possible confirmation of pill counts and the patient understands it is their responsibility to submit to random drug screens to ensure both that the medications prescribed are present, and that no other controlled substances are present. All prescriptions provided today were generated electronically. PLAN: 1. We discussed treatment options with this patient. He has been stable on Suboxone for quite some time. I think it is very helpful in relieving his pain. Refills for this medication of 8/2 were given today, #60 for today and 2 additional refills for a total of 3 months. 2. The patient discussed with Dr. Francis Marsh and myself about this ongoing neck pain that has been radiating from the base of his neck up into his ear, top of his head and down into his jaw with no arm pain currently. The patient has had multiple neck surgeries in the past. He tells us that if it gets worse, he will contact Dr. Joyce. Dr. Marsh did talk to him that there is a possibility that we could do an injection around the C2-C3, C3-C4 level if need be on the left side and we also discussed if possible of a Medrol Dosepak. We will see if the symptoms subside. The patient tells us that they are intermittent and not constant and see if this is just a flare up that will get better with time. The patient will also take his tizanidine for spasms that he has. 3. The patient will be seen in 3-month time period by Dr. Marsh. 4. The patient was seen with Dr. Francis Marsh today who also collaborated care. ��������������������������������������������� <ELECTRONICALLY SIGNED> ���������������������������������������� By: Vicki Guerrero ��������������������������������������������� 07/05/18 0801 [id number] [id number] Vicki Guerrero /nt
== END ==
LOC: PAIN 06:59
DX: M54.2 Cervicalgia (principal); M79.18 Myalgia, other site; G89.29 Other chronic pain; M25.511 Pain in right shoulder; M25.512 Pain in left shoulder; Z88.5 Allergy status to narcotic agent; Z79.899 Other long term (current) drug therapy

== ENCOUNTER → 2018-12-18 | Outpatient (CLI) | payer OTHER ==
[~2018-12-18] VITALS: Ht 175.3 cm; Wt 113.6 kg
[2018-12-18 09:55] VITALS: BP 151/95
--- NOTE | 2018-12-18 10:16 | NUR ---
Pain Clinic Assessment: 1. History of Osteoarthritis: Not Applicable History of Rheumatoid Arthritis: Not Applicable 2. Height: 5 ft. 9 in. 175.3 cm. Weight: 250.4 lb. oz. 113.581 kg. Patient's BMI: 37.0 3. Vital Signs: BP: 151/95 Pulse: 103 Resp: 18 Temp: 02 Sat: 96 ECG Mon: 4. Pain Intensity: 4 5. Fall Risk: Dizziness: N Needs help standing or walking: N Fallen in the last 3 months: N Fall risk comments: 6. Patient on Blood Thinner: None 7. History of Hypertension: Y 8. Opioid Therapy greater than 6 weeks: Y Opiate Contract Signed: 11/10/15 9. Risk Assessment Tool Provided: low-0 10. Functional Assessment Tool: 11. Recreational Drug Use: Never Drug Type: Tobacco Use: Never Smoker Tobacco Type: Amount or Packs/day: How Many Years: Alcohol Use: Yes Frequency: Daily Quant: 2
--- NOTE | 2018-12-19 13:04 | HPC ---
[facility] [address] [address] PAIN MANAGEMENT CONSULTATION Name: YAN OAKES Room #: REG RAMSEY Margot#: [id number] Admission: 12/18/18 Attend Phys: Vicki Guerrero Discharge: Date of : 61 Report #: [id number] THIS REPORT FOR: //name// CC: Vicki GILL [facility] Physician staff DATE OF SERVICE: 12/18/2018 CHIEF COMPLAINT: Chronic intractable pain. HISTORY OF PRESENT ILLNESS: This is a 52-year-old gentleman who returns to the pain clinic today for refill of his medications that he uses to help treat his ongoing low back pain, bilateral shoulder pain and neck pain. His pain score today is a 4/10. He feels that the Suboxone is very beneficial in helping control his pain, rating at 4/10, which is a chronic achy, stabbing pain. It is worse with activity, better with his medication and sitting in his recliner. He feels that he is more active recently because he has been caring for his dad who has Parkinson's. He tells me he does all the housework and helps with movement of his father as well as also helps care for her granddaughter. Some days, his pain is more elevated because of all of his physical activity, but he also reports that the physical activity in turn helps make him feel better on some days as well. He has been having problems with his sleep. He feels that part of that is to blame after his caregiving tests are finished. He sits and relaxes and watches TV and therefore stays up too late and does not go to bed and because of this, he feels like he has trained his body to have bad sleeping regimen. The patient tells me that he continues to try and lose weight. He is down 9 pounds since his last visit. He informed me he is trying to see a primary care doctor because it is time for his yearly checkup as well and have his medications refilled. ALLERGIES: MORPHINE. CURRENT LIST OF MEDICATIONS: Suboxone 8/2 b.i.d., tizanidine 2 mg 1-2 tablets p.r.n., fluoxetine 40 mg daily, carvedilol 3.125 b.i.d., clonidine 0.1 b.i.d., amlodipine 5 mg daily, Nexium 40 mg daily and pravastatin 20 mg daily. PQRS: 1. He has arthritic changes in his lumbar spine. Denies any rheumatoid arthritis. 2. Height is 5 feet 9 inches, weight is 250 and BMI is 37. 3. Vital signs 151/95, pulse is 103, respirations 18, oxygen sat is 96. 4. Pain score is 4/10. 5. Denies dizziness, does not need help walking or standing, has not fallen in [address] [address] PAIN MANAGEMENT CONSULTATION Name: YAN OAKES Room #: REG [facility].#: [id number] Admission: 12/18/18 Attend Phys: Vicki Guerrero Discharge: Date of : 61 Report #: [id number] the last 3 months. 6. The patient is not on any blood thinners, but does have hypertension. 7. Opiate therapy is greater than 6 weeks; therefore, an opioid signed contract is on the chart. His risk assessment tool is low. Functional assessment is 42/70. 8. Recreational drug use, he denies. He does drink alcohol 2-3 drinks a day. PHYSICAL EXAMINATION: GENERAL: This is a well-developed, well-nourished, exogenous, obese 52-year-old who appears his stated age, placing his current pain score 4/10. HEENT: Normocephalic, atraumatic. Extraocular eye muscles are intact. Mucous membranes are moist. MUSCULOSKELETAL: Complains of tenderness between his shoulder blades as well as low back pain tenderness. His muscle strength in his upper and lower extremities, judged to be 5/5 in all major muscle groups. He walks with a slightly antalgic gait. ASSESSMENT: 1. Chronic neck pain, status post fusion. 2. Myofascial pain. 3. Opioid use disorder. 4. Complex opioid management. 5. Chronic intractable pain. 6. Opioid dependency. We reviewed the fact that opiate medications are being used to provide analgesia adequate to support activities of daily living, not attempting to achieve a specific pain score on the 0-10 Visual Analog Scale. The current opiate medications are providing sufficient analgesia to allow the patient to participate in activities of daily living. The patient is not exhibiting any aberrant behavior suggestive of drug diversion. The patient is not having any adverse reactions to medications. The patient is not suffering from daytime somnolence or mental acuity changes. The patient is managing opiate-induced constipation with appropriate qvmi-uks-brxmidf agents and dietary considerations. The patient was counseled on concern for caution with operating a motor vehicle while using opiate medications. A physical exam was performed and the patient's functional status was evaluated. All patients with back pain were advised against the bed rest greater than 4 days and were advised to return to normal activities. Pain score assessment was noted and the treatment plan was reviewed with the patient. All current medications, both prescribed and OTC were reviewed and reconciled on the electronic medical record. Tobacco screening was accomplished and smoking cessation was advised when indicated. BMI was noted and diet/exercise modification was recommended for all patients following outside normal parameters. [facility] [address] [place] [address] PAIN MANAGEMENT CONSULTATION Name: YAN OAKES [id number] Admission: 12/18/18 Attend Phys: Vicki JANESSA Guerrero Discharge: Date of : 61 Report #: [id number] I reviewed with the patient today their responsibilities to safeguard prescription medications, reviewed their responsibility to utilize medications only as prescribed by the physician. They are to seek and receive pain medications only from 1 physician group ( [facility]). They are to use 1 pharmacy and keep the clinic informed if they change pharmacies. Their responsibilities include making followup visits in a timely fashion and to avoid abrupt discontinuation of medication usage. Their responsibilities further include bringing their medications (bottles from the pharmacy with residual pills) to the visit for possible confirmation of pill counts and the patient understands it is their responsibility to submit to random drug screens to ensure both that the medications prescribed are present, and that no other controlled substances are present. All prescriptions provided today were generated electronically. PLAN: 1. We discussed treatment options with the patient today, we had checked the prescription monitoring system, the patient is filling appropriately and we did check a random drug screen on him at the last visit. It did show metabolites of alcohol. The patient does drink 2-3 beers a day. I encouraged him to try to decrease his alcohol intake since he is on narcotics and is showing metabolites even after he has been drinking the next day. The patient verbalizes understanding. He will try to decrease his alcohol intake. 2. The patient finds the Suboxone very beneficial in controlling his pain and costing him generic very little per month less than $10. Scripts given today for the Suboxone 10/27 #60 for 2 additional refills. The patient does take this medication for his chronic pain. 3. The patient will talk to his primary care doctor regarding his elevated blood pressure. I encouraged him to check it at home to see if it is elevated when he is not at the doctor's office. He believes he has a machine at home. It has been slowly elevating despite taking several hypertension medications. He will also discuss this with his primary at his appointment that he has soon. 4. Dr. Francis Marsh collaborated care today. The patient will return in followup in 3 months. <ELECTRONICALLY SIGNED> By: Vicki Guerrero 12/19/18 1304 [id number] [id number] Vicki Guerrero /gagandeep
== END ==
LOC: PAIN 06:50
DX: G89.29 Other chronic pain (principal); M54.2 Cervicalgia; M79.18 Myalgia, other site; F11.20 Opioid dependence, uncomplicated; Z88.8 Allergy status to other drugs, medicaments and biological substances; Z79.899 Other long term (current) drug therapy

== ENCOUNTER → 2019-03-15 | Outpatient (CLI) | payer OTHER ==
[~2019-03-15] VITALS: Ht 175.3 cm; Wt 122.9 kg
[~2019-03-15] MED LIST changes: +SEROQUEL 25 MG25 MG PO
[2019-03-15 10:07] VITALS: BP 145/93
--- NOTE | 2019-03-15 10:42 | NUR ---
Pain Clinic Assessment: 1. History of Osteoarthritis: NECK BACK History of Rheumatoid Arthritis: Not Applicable 2. Height: 5 ft. 9 in. 175.3 cm. Weight: 271.0 lb. oz. 122.925 kg. Patient's BMI: 40.0 3. Vital Signs: BP: 145/93 Pulse: 115 Resp: 18 Temp: 02 Sat: 97 ECG Mon: 4. Pain Intensity: 5 5. Fall Risk: Dizziness: N Needs help standing or walking: N Fallen in the last 3 months: N Fall risk comments: 6. Patient on Blood Thinner: None 7. History of Hypertension: Y 8. Opioid Therapy greater than 6 weeks: Y Opiate Contract Signed: 11/10/15 9. Risk Assessment Tool Provided: low-0 10. Functional Assessment Tool: 11. Recreational Drug Use: Never Drug Type: Tobacco Use: Never Smoker Tobacco Type: Amount or Packs/day: How Many Years: Alcohol Use: Yes Frequency: Weekly Quant: 12 PACK
--- NOTE | 2019-03-26 12:21 | HPC ---
[facility] [address] [place] [address] PAIN MANAGEMENT CONSULTATION Name: YAN OAKES Room #: REG RAMSEY Sandi.#: [id number] Admission: 03/15/19 Attend Phys: Francis Marsh MD Discharge: Date of : 61 Report #: [id number] THIS REPORT FOR: //name// CC: Physician staff Francis ACEVEDO DATE OF SERVICE: 03/15/2019 Followup visit for chronic cervicalgia and radiculopathy. I am seeing the patient today for the first time in several months. He has been seeing nurse practitioner, Vicki Guerrero. I have stepped in on most of his visits with her. He has chronic longstanding cervical pain and had issues being treated with opioids. Several years back, we transitioned him off of methadone to buprenorphine and Suboxone 8-2 sublingual has provided substantial and remarkable stability for his pain control and also for what was considered an opioid use disorder. He is calmer, more relaxed and more focused on the buprenorphine and is doing reasonably well. He does have a fair amount of stress in his life. He continues to care for a granddaughter and also an aging parent. Concerning to me is how much weight he has gained in a short period of time. He is probably 50-60 pounds up. I did not check back through the records. His BMI now is 40. As I remember, just a year or two ago, that number was closer to 30. He acknowledges that he is gaining weight rapidly, much of this is due to lack of exercise and activity. This will increase his pain and we discussed strategies to help manage that. PQRS review is positive for osteoarthritis, mostly spondylosis of the neck and back. His BMI, again, now 40. Blood pressure 145/93, heart rate 115, respirations 18. Pain intensity 5/10. He has not fallen. He is not on a blood thinner, but is treated for hypertension and edema. He is on an opioid agreement, signed many years ago and has been re-acknowledged. He is now on Suboxone for opioid use disorder. His risk assessment tool is actually low at 0. Functional assessment score is 42/70 and fairly stable. He continues to chew tobacco and drinks beer. I discussed this is part of the Wellness program and strategies to try and limit tobacco and to stop it completely. His testosterone is low and he is getting ready to initiate testosterone therapy. PHYSICAL EXAMINATION: As noted above. VITAL SIGNS: As noted. NECK: His neck range of motion is limited. [facility] [address] [place] [address] PAIN MANAGEMENT CONSULTATION Name: YAN OAKES Room #: REG [facility].#: [id number] Admission: 03/15/19 Attend Phys: Francis Marsh MD Discharge: Date of : 61 Report #: [id number] IMPRESSION: 1. Cervicalgia, chronic. 2. Opioid use disorder, treated with Suboxone. 3. Chronic myofascial pain. 4. Now morbidly obese with a BMI exceeding 40. 5. Hypertension. 6. Peripheral edema. RECOMMENDATION: I have renewed his buprenorphine. I have also given him suggestions about using [employer] to track his eating, particularly his sodium intake. He can watch closely his calories and also sugar, which is highly inflammatory. We talked about a noninflammatory diet. Follow up as needed. <ELECTRONICALLY SIGNED> By: Francis Marsh MD 03/26/19 1221 [id number] Francis Marsh MD /nt
== END ==
LOC: PAIN 06:59
DX: M54.2 Cervicalgia (principal); M79.18 Myalgia, other site; I10 Essential (primary) hypertension; Z79.891 Long term (current) use of opiate analgesic

== ENCOUNTER → 2019-06-11 | Outpatient (CLI) | payer OTHER ==
[~2019-06-11] VITALS: Ht 175.3 cm; Wt 121.7 kg
[2019-06-11 14:10] VITALS: BP 142/93
--- NOTE | 2019-06-11 14:19 | NUR ---
Pain Clinic Assessment: 1. History of Osteoarthritis: NECK BACK History of Rheumatoid Arthritis: Not Applicable 2. Height: 5 ft. 9 in. 175.3 cm. Weight: 268.4 lb. oz. 121.746 kg. Patient's BMI: 39.6 3. Vital Signs: BP: 142/93 Pulse: 96 Resp: 14 Temp: 02 Sat: 95 ECG Mon: 4. Pain Intensity: 5 5. Fall Risk: Dizziness: N Needs help standing or walking: N Fallen in the last 3 months: N Fall risk comments: 6. Patient on Blood Thinner: None 7. History of Hypertension: Y 8. Opioid Therapy greater than 6 weeks: Y Opiate Contract Signed: 11/10/15 9. Risk Assessment Tool Provided: low-0 10. Functional Assessment Tool: 11. Recreational Drug Use: Never Drug Type: Tobacco Use: Never Smoker Tobacco Type: Amount or Packs/day: How Many Years: Alcohol Use: Yes Frequency: Daily Quant: BEER
--- NOTE | 2019-06-12 09:04 | HPC ---
[facility] [address] [address] PAIN MANAGEMENT CONSULTATION Name: YAN OAKES Room #: REG RAMSEY MRickie.#: [id number] Admission: 06/11/19 Attend Phys: Vicki Guerrero Discharge: Date of : 61 Report #: [id number] THIS REPORT FOR: cc: WILFREDO ACEVEDO Physician not on staff Vicki Guerrero ~ DATE OF SERVICE: 06/11/2019 CHIEF COMPLAINT: This is a followup visit for the patient for his chronic cervicalgia and radiculopathy. HISTORY OF PRESENT ILLNESS: This is a very pleasant 53-year-old gentleman who returns to the pain clinic today for refill of his medications. Today, he is reporting a pain score of 5/10 in his neck and face as well as his lower back. He reports a pain score 5/10 today, which is an aching and stabbing feeling, worse with any activity. He feels medications have been beneficial in helping control most of his pain. Today, the patient is telling us that his lower back has flared since he continues to gain weight. Per our records, he has gained 18 pounds since November but in slightly over a year, he has gained 38 pounds. The patient states he has recently had his testosterone level checked and has started testosterone injections every 2 weeks. He is hopeful that this will help him to decrease his weight, have more energy, so he is able to ride his [employer] bike. He is hopeful by the time we see him at his next visit, he will have lost some of this weight. ALLERGIES: MORPHINE. CURRENT LIST OF MEDICATIONS: Buprenorphine, Suboxone 8/2, Seroquel, carvedilol, clonidine, amlodipine, Nexium, Pravachol. PQRS: 1. He has a history of osteoarthritis in his neck and back. Denies any rheumatoid arthritis. 2. Height is 5 feet 9 inches, weight is 268, BMI is 39. Again, an increase of 18 pounds since our last visit. 3. Vital signs 142/93, pulse is 96, respirations 14, oxygen sat is 95. 4. Pain score is 5/10. 5. Denies dizziness, does not need help walking or standing, has not fallen in the last 3 months. 6. The patient is not on any blood thinners, but does take medicine for hypertension. His opioid therapy is greater than 6 weeks; therefore, an opioid signed contract is on the chart. Risk assessment tool is low. Functional assessment is 42/70. 7. Recreational drug use, he denies. He is not a smoker and does drink alcoholic beverages. [address] [address] PAIN MANAGEMENT CONSULTATION Name: YAN OAKES Room #: REG CLAngie Frost#: [id number] Admission: 06/11/19 Attend Phys: Vicki Guerrero Discharge: Date of : 61 Report #: [id number] According to the prescription monitoring system, the patient is filling appropriately for his medications, filling them in a timely fashion. His morphine milliequivalent according to the CDC guidelines is 16. There is a recent drug screen on the chart that is appropriate. PHYSICAL EXAMINATION: GENERAL: This is alert and orientated 53-year-old who appears his stated age, placing his current pain score 5/10. HEENT: Normocephalic, atraumatic. Extraocular eye muscles are intact. NECK: He has limited range of motion and tenderness in his cervical area. EXTREMITIES: Upper extremity strength judged to be 5/5 in all major muscle groups. MUSCULOSKELETAL: The patient has tenderness in the lumbar region of his back with no radiculopathy today. Lower extremity strength judged to be 5/5 in all major muscle groups. IMPRESSION: 1. Cervicalgia, chronic. 2. Morbidly obese with body mass index of 40. 3. Hypertension. 4. Opioid use disorder, treated with Suboxone. PLAN: 1. We discussed treatment options with the patient today. The patient has recently started his testosterone injections. He is hopeful to have increased activity with this medication to, then start exercising. He has a plan to start using his [employer] bike. We did talk about caloric intake as well as other diet measures to hopefully help with his activity and exercise to decrease his weight. 2. The patient feels the buprenorphine is very beneficial in controlling his pain. He denies any problems with constipation or daytime sleepiness as a result of this medicine. We will have Dr. Francis Marsh fill this medication of Suboxone 10/27, #60 with 2 additional refills. 3. I did discuss with him and counseled the patient if for some reason he is unable to find this medicine due to the coronavirus, how to taper his medicines slowly to prevent withdrawal. The patient verbalizes understanding. Again, the patient is seen in collaboration with Dr. Francis Marsh. <ELECTRONICALLY SIGNED> By: Vicki Guerrero 06/12/19 0904 [id number] Vicki Guerrero /nt
== END ==
LOC: PAIN 06:51
DX: M54.12 Radiculopathy, cervical region (principal); G89.29 Other chronic pain; E66.01 Morbid (severe) obesity due to excess calories; I10 Essential (primary) hypertension; F11.90 Opioid use, unspecified, uncomplicated; Z88.5 Allergy status to narcotic agent; Z68.39 Body mass index [BMI] 39.0-39.9, adult; Z79.899 Other long term (current) drug therapy

== ENCOUNTER → 2019-09-10 | Outpatient (CLI) | payer OTHER ==
[~2019-09-10] VITALS: Ht 175.3 cm; Wt 120.3 kg
[~2019-09-10] MED LIST changes: +TIZANIDINE HCL 22 M1 PO
[2019-09-10 08:50] VITALS: BP 146/96
--- NOTE | 2019-09-10 08:56 | NUR ---
Pain Clinic Assessment: 1. History of Osteoarthritis: NECK BACK History of Rheumatoid Arthritis: Not Applicable 2. Height: 5 ft. 9 in. 175.3 cm. Weight: 265.2 lb. oz. 120.294 kg. Patient's BMI: 39.1 3. Vital Signs: BP: 146/96 Pulse: 87 Resp: 18 Temp: 02 Sat: 95 ECG Mon: 4. Pain Intensity: 5 5. Fall Risk: Dizziness: N Needs help standing or walking: N Fallen in the last 3 months: N Fall risk comments: 6. Patient on Blood Thinner: None 7. History of Hypertension: Y 8. Opioid Therapy greater than 6 weeks: Y Opiate Contract Signed: 11/10/15 9. Risk Assessment Tool Provided: low-0 10. Functional Assessment Tool: 11. Recreational Drug Use: Never Drug Type: Tobacco Use: Never Smoker Tobacco Type: Amount or Packs/day: How Many Years: Alcohol Use: Yes Frequency: Quant:
--- NOTE | 2019-09-11 07:46 | HPC ---
[facility] [address] [address] PAIN MANAGEMENT CONSULTATION Name: YAN OAKES Room #: REG RAMSEY M.R.#: [id number] Admission: 09/10/19 Attend Phys: Vicki Guerrero Discharge: Date of : 61 Report #: [id number] THIS REPORT FOR: cc: WILFREDO ACEVEDO Physician not on staff Vicki Guerrero ~ CC: Francis Marsh MD DATE OF SERVICE: 09/10/2019 CHIEF COMPLAINT: Chronic cervicalgia and radiculopathy. HISTORY OF PRESENT ILLNESS: This is a 53-year-old gentleman who returns to the pain clinic today for refill of his medications that he takes for his ongoing neck pain. Today, he is reporting pain between his shoulder blades as well, feels that is in part of being more physically active. He is renovating their house, getting it ready to sell, [place] Because of this increased activity, he feels that his pain has slightly increased as well, rating at a 5/10 today. He also reports that he feels his pain is increased because he is heavier than he had been in the past. Today, his weight is 265, which is a slight decrease from his last visit, but a significant increase in his weight from a year ago. The patient is reporting his pain is a burning, aching, pressure feeling, worse with activity. He feels that his Suboxone therapy is very beneficial as well. He reports that he is no longer taking fluoxetine. He is taking Seroquel twice a day in its place. He does occasionally take tizanidine when his muscles are very tight that we prescribe for him as well. ALLERGIES: MORPHINE. CURRENT LIST OF MEDICATIONS: Suboxone 8/2 b.i.d., Seroquel 25 mg b.i.d., clonidine, amlodipine, Nexium, pravastatin, and tizanidine. PATIENT'S PQRS: 1. He has history of osteoarthritis in his neck and back. Denies any rheumatoid arthritis. 2. Height is 5 feet 9 inches, weight is 265, BMI is 39. 3. Vital signs, blood pressure 146/96, pulse is 87, respirations 18, oxygen sat is 95. 4. Pain score is 5/10. 5. Denies dizziness, does not need help walking or standing, has not fallen in the last 3 months. 6. The patient is not on any blood thinners, but does take medicine for hypertension. 7. Opioid therapy is greater than 6 weeks; therefore, [place] [address] PAIN MANAGEMENT CONSULTATION Name: YAN OAKES Room #: REG [facility] [id number] Admission: 09/10/19 Attend Phys: Vicki Guerrero Discharge: Date of : 61 Report #: [id number] is on the chart. Risk assessment tool is low. Functional assessment is 42/70. 8. Recreational drug use, he denies. He is not a smoker and occasionally drinks alcohol. According to the prescription monitoring system, his morphine milliequivalent is 16 MMEs per day. He is due to fill his medicines this week. There is a random drug screen on the chart, but we will recheck that at his next visit, which will be in November. PHYSICAL EXAMINATION: GENERAL: This is a well-developed, slightly obese 53-year-old gentleman who is alert and orientated, placing his current pain score at 5/10. HEENT: Normocephalic, atraumatic. Extraocular eye muscles are intact. He is wearing a mask. NECK: He has limited range of motion in forward flexion and extension. He has tenderness in his paraspinal musculature as well. MUSCULOSKELETAL: He has tenderness in his lower back lumbar region with no radiculopathy. His upper and lower extremities strength judged to be 5/5 in all major muscle groups. IMPRESSION: 1. Cervicalgia. 2. Morbid obesity with body mass index of 39. 3. Hypertension. 4. Opioid use disorder, treated with Suboxone. PLAN: 1. We discussed treatment options with the patient today. The patient feels that his Suboxone has been very beneficial in controlling his discomfort. He has been more physically active due to renovating the house. He feels that may be part of it. We did encourage him to try to exercise on his bike that he had been using in the past and did discuss diet control to help decrease his weight as well. 2. We will continue his Suboxone, which he denies any side effects. Dr. Marsh will fill this medication of Suboxone 10/27, #60 with 2 additional refills. 3. The patient continues to worry about the COVID outbreak virus. He has only left the house to come to our appointment twice since May. Otherwise, he does stay at home. His does all of the errands for them. The patient has limited access with any family outside his . 4. The patient is seen in collaboration today with Dr. Francis Marsh. <ELECTRONICALLY SIGNED> By: Vicki Guerrero 09/11/19 0746 [id number] Vicki Guerrero /nt
== END ==
LOC: PAIN 06:46
PROVIDERS: ATTEND Clinical Nurse Specialist Adult Health
DX: M54.12 Radiculopathy, cervical region (principal); E66.01 Morbid (severe) obesity due to excess calories; I10 Essential (primary) hypertension; F11.20 Opioid dependence, uncomplicated; Z88.5 Allergy status to narcotic agent; Z79.899 Other long term (current) drug therapy

== ENCOUNTER → 2019-12-14 | Outpatient (CLI) | payer OTHER ==
[~2019-12-14] VITALS: Ht 175.3 cm; Wt 121.4 kg
--- NOTE | ~2019-12-14 | HPC ---
[facility] [address] [place] [address] PAIN MANAGEMENT CONSULTATION Name: YAN OAKES Room #: REG Angie M.Mary Lou.#: [id number] Admission: 12/14/19 Attend Phys: Vicki Guerrero Discharge: Date of : 61 Report #: [id number] THIS REPORT FOR: cc: WILFREDO ACEVEDO Physician not on staff Vicki Guerrero ~ CC: Vicki Guerrero Physician staff WILFREDO ACEVEDO DATE OF SERVICE: 12/14/2019 CHIEF COMPLAINT: Chronic cervicalgia and radiculopathy. HISTORY OF PRESENT ILLNESS: This is a pleasant 53-year-old gentleman who returns to the pain clinic today for refill of his opioid medications. He does report today that he had COVID in October. His entire family was sick. His father, who had recently moved into an assisted living facility, contracted it and . He states he was sick for about 2 weeks. He reports that his entire family is feeling better now and himself feeling much better. He experienced symptoms of fever, aches and pains, cough throughout his COVID duration. Today, the patient is complaining of pain in his neck that radiates into his shoulder blades. He also complains of pain in the left side of his head, stating it is a pressure, aching and stabbing feeling, rating his pain score 4/10, worse with any activity. He feels that medication as well as sitting in his recliner are beneficial. He has not been able to rest very much, though because they are getting ready to sell their house and move to [place], they are having their entire home repainted inside, so he is having to move lots of furniture and things within his house and that has increased his pain some as well. He denies any problems with constipation as a result of his medications. ALLERGIES: MORPHINE. CURRENT MEDICATIONS: Tizanidine p.r.n., Suboxone 8/2 b.i.d., Seroquel, Coreg, clonidine, amlodipine, Nexium and pravastatin. PQRS: 1. He has osteoarthritis in his neck and back. Denies any rheumatoid arthritis. 2. Height is 5 feet 9 inches, weight is 267, BMI is 39.5. 3. Vital signs 160/97, pulse is 92, respirations 18, oxygen sat is 98. 4. Pain score is 4/10. 5. Denies dizziness, does not need help walking or standing, has not fallen in the last 3 months. [facility] [address] [place] [address] PAIN MANAGEMENT CONSULTATION Name: YAN OAKES Room #: REG [facility].#: [id number] Admission: 12/14/19 Attend Phys: Vicki Guerrero Discharge: Date of : 61 Report #: [id number] 6. The patient is not on any blood thinners, does have a history of hypertension. 7. The patient is on opioid therapy, opioid signed contract is on the chart. 8. Risk assessment tool is low. Functional assessment is 42/70. 9. Recreational drug use, he denies. He is not a smoker and does drink alcohol. According to the prescription monitoring system, the patient is filling appropriately for his medications in a timely fashion. We will collect a random drug screen on this patient at his next visit. PHYSICAL EXAMINATION: GENERAL: This is alert and orientated, obese, well-developed, well-nourished 53-year-old gentleman who appears his stated age, placing his current pain score at 4/10. HEENT: Normocephalic, atraumatic. Extraocular eye muscles are intact. Mucous membranes are moist. He is wearing a mask. NECK: He has limited range of motion in his forward flexion and extension. Tenderness in his paraspinal musculature along the outer aspect of his cervical spine. MUSCULOSKELETAL: Upper extremity strength is judged to be symmetrical in strength of 5/5. He has tenderness in his lumbosacral region with no radicular symptoms. IMPRESSION: 1. Cervicalgia. 2. Morbid obesity. 3. Cervical radiculopathy. 4. Hypertension. 5. Opioid use disorder, treated with Suboxone. We reviewed the fact that opiate medications are being used to provide analgesia adequate to support activities of daily living, not attempting to achieve a specific pain score on the 0-10 Visual Analog Scale. The current opiate medications are providing sufficient analgesia to allow the patient to participate in activities of daily living. The patient is not exhibiting any aberrant behavior suggestive of drug diversion. The patient is not having any adverse reactions to medications. The patient is not suffering from daytime somnolence or mental acuity changes. The patient is managing opiate-induced constipation with appropriate [id number] agents and dietary considerations. The patient was counseled on concern for caution with operating a motor vehicle while using opiate medications. PLAN: 1. We discussed treatment options with the patient today. The patient feels that overall his medications have been beneficial allowing him to be active as [address] [address] PAIN MANAGEMENT CONSULTATION Name: YAN OAKES Room #: REG CLAnige Frost#: [id number] Admission: 12/14/19 Attend Phys: Vicki Guerrero Discharge: Date of : 61 Report #: [id number] he is able at home. They are currently working on remodeling their house, getting it ready for sale. He does report during COVID, he was in bed most of the 2 weeks, but is slowly becoming more active again. 2. We did discuss his weight and exercise. The patient is trying to monitor that and hopefully will be able to start exercising again to decrease some of his weight that he has gained in the past year. 3. We will continue on Suboxone 10/27, #60 with 2 additional refills. This will be written by Dr. Robert who is covering for Dr. Marsh today. The patient is not needing his tizanidine today since he takes it on a very sparingly basis. 4. The patient is seen today in collaboration with Dr. Robert. The patient instructed to call in a timely fashion for an appointment with Dr. Marsh in February and he will have a urine drug screen repeated at that time. By: [id number] Vicki Guerrero /nt
[2019-12-14 07:56] VITALS: BP 160/97
--- NOTE | 2019-12-14 07:59 | NUR ---
Pain Clinic Assessment: 1. History of Osteoarthritis: NECK BACK History of Rheumatoid Arthritis: Not Applicable 2. Height: 5 ft. 9 in. 175.3 cm. Weight: 267.6 lb. oz. 121.383 kg. Patient's BMI: 39.5 3. Vital Signs: BP: 160/97 Pulse: 92 Resp: 18 Temp: 02 Sat: 98 ECG Mon: 4. Pain Intensity: 4 5. Fall Risk: Dizziness: N Needs help standing or walking: N Fallen in the last 3 months: N Fall risk comments: 6. Patient on Blood Thinner: None 7. History of Hypertension: Y 8. Opioid Therapy greater than 6 weeks: Y Opiate Contract Signed: 11/10/15 9. Risk Assessment Tool Provided: low-0 10. Functional Assessment Tool: 11. Recreational Drug Use: Never Drug Type: Tobacco Use: Never Smoker Tobacco Type: Amount or Packs/day: How Many Years: Alcohol Use: Yes Frequency: Daily Quant: 6
== END ==
LOC: PAIN 06:48
PROVIDERS: ATTEND Clinical Nurse Specialist Adult Health
DX: M54.12 Radiculopathy, cervical region (principal); G89.29 Other chronic pain; I10 Essential (primary) hypertension; F11.20 Opioid dependence, uncomplicated; E66.01 Morbid (severe) obesity due to excess calories; Z88.5 Allergy status to narcotic agent; Z79.899 Other long term (current) drug therapy

== ENCOUNTER → 2020-03-17 | Outpatient (CLI) | payer OTHER ==
[~2020-03-17] VITALS: Ht 175.3 cm; Wt 117.3 kg
[2020-03-17 08:43] VITALS: BP 145/96
--- NOTE | 2020-03-17 08:55 | NUR ---
Pain Clinic Assessment: 1. History of Osteoarthritis: NECK BACK History of Rheumatoid Arthritis: Not Applicable 2. Height: 5 ft. 9 in. 175.3 cm. Weight: 258.6 lb. oz. 117.300 kg. Patient's BMI: 38.2 3. Vital Signs: BP: 145/96 Pulse: 105 Resp: 16 Temp: 02 Sat: 99 ECG Mon: 4. Pain Intensity: 5 5. Fall Risk: Dizziness: N Needs help standing or walking: N Fallen in the last 3 months: N Fall risk comments: 6. Patient on Blood Thinner: None 7. History of Hypertension: Y 8. Opioid Therapy greater than 6 weeks: Y Opiate Contract Signed: 11/10/15 9. Risk Assessment Tool Provided: low-0 10. Functional Assessment Tool: 11. Recreational Drug Use: Never Drug Type: Tobacco Use: Never Smoker Tobacco Type: Chewing Tobacco Amount or Packs/day: How Many Years: 30 Alcohol Use: Yes Frequency: Daily Quant: 6 PACK
--- NOTE | 2020-03-18 09:13 | HPC ---
[facility] [place] [address] PAIN MANAGEMENT CONSULTATION Name: YAN OAKES Room #: REG Angie M..#: [id number] Admission: 03/17/20 Attend Phys: Vicki Guerrero Discharge: Date of : 61 Report #: [id number] THIS REPORT FOR: cc: WILFREDO ACEVEDO Physician not on staff Vicki Guerrero ~ DATE OF SERVICE: 03/17/2020 CHIEF COMPLAINT: Chronic cervicalgia and radiculopathy. HISTORY OF PRESENT ILLNESS: This is a 54-year-old gentleman who returns to the pain clinic today for refill of his opioid medications that he uses to help treat his ongoing neck pain. He does have some low back issues as well, rating his pain score today at 5/10. He does characterize his pain as a pressure, aching sensation with occasional stabbing. It is worse with activity. The patient believes that his medication as well as repositioning in a recliner has been beneficial. The patient has reported trying to decrease his Suboxone tablets and would like to continue trying to do so. He is hopeful over the next few months. He is able to decrease down to 1 tablet a day, but there are days that he is requiring two. He has been able to go slightly longer in between refills that he is getting ready to move and he knows that will increase his activity significantly. He denies any constipation issues or daytime somnolence as a result of his medication. We did discuss the patient's weight. He reports that he is trying to attempt to lose weight since that has been affecting his lower back pain that has been increasing and one-time he was in the 230 pounds range about 2 years ago. Currently, today he weighs 258, but this is down from 270 last February. The patient reports he knows his issue is that he is drinking more alcohol, which does add weight. He also recently started some Seroquel, which has a tendency to gain weight and now make him hungry, so he is going to work harder and trying to decrease his alcohol consumption and decrease his weight. ALLERGIES: MORPHINE. CURRENT LIST OF MEDICATIONS: Buprenorphine 8/2 daily to b.i.d.; tizanidine p.r.n., Seroquel 25 mg daily, Coreg, clonidine, amlodipine, Nexium, and pravastatin. PQRS: 1. He has a history of osteoarthritis in his neck and back. Denies any rheumatoid arthritis. 2. Height is 5 feet 9 inches, weight is 258, BMI is 38. 3. Vital signs 145/96, pulse is 105, respirations 16, oxygen sat is 99. 4. Pain score is 5/10. 5. Denies dizziness, does not need help walking or standing, has not fallen in [address] [address] PAIN MANAGEMENT CONSULTATION Name: YAN OAKES Room #: REG RAMSEY Frost#: [id number] Admission: 03/17/20 Attend Phys: Vicki Guerrero Discharge: Date of : 61 Report #: [id number] the last 3 months. 6. The patient is not on any blood thinners, does have a history of hypertension. 7. Opioid therapy is greater than 6 weeks; therefore, an opioid signed contract is on the chart. Risk assessment is low. Functional assessment is 42/70. 8. Recreational drug use, he denies. He does use chewing tobacco and drinks about a 6-pack of beer a day. According to the prescription monitoring system, the patient is filling appropriately. He is filling longer in between fills due to trying to decrease his opioid medications. We will collect a random drug screen on the patient today. PHYSICAL EXAMINATION: GENERAL: This is alert and orientated, obese, well-nourished 54-year-old gentleman who appears his stated age, placing his current pain score at 5/10. He has a significantly long milian that he has grown through the COVID outbreak. HEENT: Normocephalic, atraumatic. Extraocular eye muscles are intact. Mucous membranes are moist. He is wearing a mask. NECK: Limited range of motion with extension and forward flexion. Tenderness in the paraspinal musculature is present along the cervical spine. MUSCULOSKELETAL: His upper and lower extremity strength is symmetrical at 5/5. He does have tenderness in the lumbosacral region with no radicular symptoms noted. IMPRESSION: 1. Cervicalgia. 2. Morbid obesity. 3. Cervical radiculopathy. 4. Hypertension. 5. Opioid use disorder, treated with Suboxone under written agreement. We reviewed the fact that opiate medications are being used to provide analgesia adequate to support activities of daily living, not attempting to achieve a specific pain score on the 0-10 Visual Analog Scale. The current opiate medications are providing sufficient analgesia to allow the patient to participate in activities of daily living. The patient is not exhibiting any aberrant behavior suggestive of drug diversion. The patient is not having any adverse reactions to medications. The patient is not suffering from daytime somnolence or mental acuity changes. The patient is managing opiate-induced constipation with appropriate [id number]-gyj-kwbgrtz agents and dietary considerations. The patient was counseled on concern for caution with operating a motor vehicle while using opiate medications. A physical exam was performed and the patient's functional status was evaluated. All patients with back pain were advised against the bed rest greater than 4 [facility] [address] [place] [address] PAIN MANAGEMENT CONSULTATION Name: YAN OAKES Room #: REG RAMSEY M.R.#: [id number] Admission: 03/17/20 Attend Phys: Vicki JANESSA Guerrero Discharge: Date of : 61 Report #: [id number] days and were advised to return to normal activities. Pain score assessment was noted and the treatment plan was reviewed with the patient. All current medications, both prescribed and OTC were reviewed and reconciled on the electronic medical record. Tobacco screening was accomplished and smoking cessation was advised when indicated. BMI was noted and diet/exercise modification was recommended for all patients following outside normal parameters. I reviewed with the patient today their responsibilities to safeguard prescription medications, reviewed their responsibility to utilize medications only as prescribed by the physician. They are to seek and receive pain medications only from 1 physician group ( [facility]). They are to use 1 pharmacy and keep the clinic informed if they change pharmacies. Their responsibilities include making followup visits in a timely fashion and to avoid abrupt discontinuation of medication usage. Their responsibilities further include bringing their medications (bottles from the pharmacy with residual pills) to the visit for possible confirmation of pill counts and the patient understands it is their responsibility to submit to random drug screens to ensure both that the medications prescribed are present, and that no other controlled substances are present. All prescriptions provided today were generated electronically. PLAN: 1. We discussed treatment options with the patient today. We collected a random drug screen on the patient today and he did admit that he has been drinking about 6 packs of beer every evening. We discussed ways to decrease this; patient is agreeable. He does need to decrease his intake and had discussed this with his this weekend. He will attempt to do this before our next visit. 2. The patient has been decreasing his Suboxone utilizing one every day, occasionally two. He has been able to go longer in between fills. He would like to continue decreasing on his own, so hopeful by the next refill in 3 months he will have cut down to 1 a day. We will write prescriptions for Suboxone 10/27, #60 with 1 refill. This may last the patient 2 months or if he is able to continue to weaning slightly longer, he will notify us by phone if he needs a refill or he will make an appointment. We will address a decrease at his next visit. 3. We did discuss the patient's weight encouraging him to try and be physically active, do change his diet and alcohol intake to lose weight. Unfortunately, his Seroquel is a medication for some people that they do gain weight as a side effect. The patient will continue to work on decreasing his weight. [address] [address] PAIN MANAGEMENT CONSULTATION Name: YAN OAKES Room #: REG RAMSEY Frost#: [id number] Admission: 03/17/20 Attend Phys: Vicki Guerrero Discharge: Date of : 61 Report #: [id number] 4. The patient is seen in collaboration with Dr. Francis Marsh, scripts were sent to his [facility] pharmacy. <ELECTRONICALLY SIGNED> By: Vicki Guerrero 03/18/20 0913 [id number] Vicki Guerrero /nt
== END ==
LOC: PAIN 03-07 10:32
PROVIDERS: ATTEND Clinical Nurse Specialist Adult Health
DX: M54.12 Radiculopathy, cervical region (principal); E66.01 Morbid (severe) obesity due to excess calories; I10 Essential (primary) hypertension; Z79.891 Long term (current) use of opiate analgesic

== ENCOUNTER → 2020-06-12 | Outpatient (CLI) | payer OTHER ==
[~2020-06-12] VITALS: Ht 175.3 cm; Wt 115.9 kg
[2020-06-12 09:05] VITALS: BP 151/88
--- NOTE | 2020-06-12 09:09 | NUR ---
Pain Clinic Assessment: 1. History of Osteoarthritis: NECK BACK History of Rheumatoid Arthritis: Not Applicable 2. Height: 5 ft. 9 in. 175.3 cm. Weight: 255.6 lb. oz. 115.940 kg. Patient's BMI: 37.7 3. Vital Signs: BP: 151/88 Pulse: 87 Resp: 18 Temp: 02 Sat: 96 ECG Mon: 4. Pain Intensity: 5 5. Fall Risk: Dizziness: N Needs help standing or walking: N Fallen in the last 3 months: N Fall risk comments: 6. Patient on Blood Thinner: None 7. History of Hypertension: Y 8. Opioid Therapy greater than 6 weeks: Y Opiate Contract Signed: 11/10/15 9. Risk Assessment Tool Provided: low-0 10. Functional Assessment Tool: 11. Recreational Drug Use: Never Drug Type: Tobacco Use: Never Smoker Tobacco Type: Amount or Packs/day: How Many Years: Alcohol Use: Yes Frequency: Quant:
== END ==
LOC: PAIN 06:36
PROVIDERS: ATTEND Clinical Nurse Specialist Adult Health
DX: M54.12 Radiculopathy, cervical region (principal); E66.01 Morbid (severe) obesity due to excess calories; I10 Essential (primary) hypertension; K59.00 Constipation, unspecified; Z72.89 Other problems related to lifestyle; Z79.891 Long term (current) use of opiate analgesic

== ENCOUNTER → 2020-11-03 | Outpatient (CLI) | payer OTHER ==
[~2020-11-03] VITALS: Ht 175.3 cm; Wt 111.7 kg
[2020-11-03 09:00] VITALS: BP 168/103
--- NOTE | 2020-11-03 09:04 | NUR ---
Pain Clinic Assessment: 1. History of Osteoarthritis: NECK BACK History of Rheumatoid Arthritis: Not Applicable 2. Height: 5 ft. 9 in. 175.3 cm. Weight: 246.2 lb. oz. 111.676 kg. Patient's BMI: 36.3 3. Vital Signs: BP: 168/103 Pulse: 103 Resp: 18 Temp: 02 Sat: 93 ECG Mon: 4. Pain Intensity: 5 5. Fall Risk: Dizziness: N Needs help standing or walking: N Fallen in the last 3 months: N Fall risk comments: 6. Patient on Blood Thinner: None 7. History of Hypertension: Y 8. Opioid Therapy greater than 6 weeks: Y Opiate Contract Signed: 11/10/15 9. Risk Assessment Tool Provided: low-0 10. Functional Assessment Tool: 11. Recreational Drug Use: Never Drug Type: Tobacco Use: Never Smoker Tobacco Type: Amount or Packs/day: How Many Years: Alcohol Use: Yes Frequency: Daily Quant: 6
== END ==
LOC: PAIN 09-18 08:28
PROVIDERS: ATTEND Anesthesiology Pain Medicine
DX: G89.29 Other chronic pain (principal); M54.12 Radiculopathy, cervical region; E66.01 Morbid (severe) obesity due to excess calories; F10.10 Alcohol abuse, uncomplicated; Z68.36 Body mass index [BMI] 36.0-36.9, adult; Z88.5 Allergy status to narcotic agent; Z79.891 Long term (current) use of opiate analgesic; Z79.899 Other long term (current) drug therapy

== ENCOUNTER → 2021-02-09 | Outpatient (CLI) | payer OTHER ==
[~2021-02-09] VITALS: Ht 175.3 cm; Wt 111.6 kg
[~2021-02-09] MED LIST changes: +SUBOXONE 8 MG-1 EAC3 SUBLING
[2021-02-09 09:04] VITALS: BP 154/99
--- NOTE | 2021-02-09 09:07 | NUR ---
Pain Clinic Assessment: 1. History of Osteoarthritis: NECK BACK History of Rheumatoid Arthritis: Not Applicable 2. Height: 5 ft. 9 in. 175.3 cm. Weight: 246.0 lb. oz. 111.585 kg. Patient's BMI: 36.3 3. Vital Signs: BP: 154/99 Pulse: 85 Resp: 16 Temp: 02 Sat: 97 ECG Mon: 4. Pain Intensity: 5 5. Fall Risk: Dizziness: N Needs help standing or walking: N Fallen in the last 3 months: N Fall risk comments: 6. Patient on Blood Thinner: None 7. History of Hypertension: Y 8. Opioid Therapy greater than 6 weeks: Y Opiate Contract Signed: 11/10/15 9. Risk Assessment Tool Provided: low-0 10. Functional Assessment Tool: 11. Recreational Drug Use: Never Drug Type: Tobacco Use: Never Smoker Tobacco Type: Amount or Packs/day: How Many Years: Alcohol Use: Yes Frequency: Quant:
== END ==
LOC: PAIN 08:49
PROVIDERS: ATTEND Clinical Nurse Specialist Adult Health
DX: G89.29 Other chronic pain (principal); M54.12 Radiculopathy, cervical region; I10 Essential (primary) hypertension; M54.50 Low back pain, unspecified; E66.01 Morbid (severe) obesity due to excess calories; Z88.8 Allergy status to other drugs, medicaments and biological substances; Z79.899 Other long term (current) drug therapy